=== PATIENT | female | born 1975 | race Caucasian/White ===

== ENCOUNTER 2022-07-20 10:39 | Outpatient (CLI) | payer OTHER, SELFPAY ==
[2022-07-20 22:19] LABS: Chloride* 110 mmol/L (96-114); Sodium* 138 mmol/L (135-149)
[2022-07-20 22:20] LABS: Potassium* 4.2 mmol/L (3.6-5.1)
[2022-07-20 22:22] LABS: Blood Urea Nitrogen* 11 mg/dL (5-24); Carbon Dioxide* 17 mmol/L (20-32); Creatinine* 0.8 mg/dL (0.5-1.5); Estimated Glomerular Filt Rate 91 ml/min; Glucose* 97 mg/dL (60-115)
[2022-07-20 22:23] LABS: Calcium* 8.9 mg/dL (8.4-10.6)
[2022-07-20 23:09] LABS: Free T4 Free Thyroxine* 0.71 ng/dL (0.70-1.85)
[2022-07-23 17:56] LABS: Vitamin D, 1,25-Dihydroxy 80.6 pg/mL (19.9-79.3)
== END 2022-07-20 10:40 | disposition home or self-care (01) ==
PROVIDERS: PCP Physician Assistant Medical; Visit Provider Physician Assistant Medical
DX: E03.9 Hypothyroidism, unspecified (principal); N20.0 Calculus of kidney; F41.9 Anxiety disorder, unspecified; I67.1 Cerebral aneurysm, nonruptured; K52.839 Microscopic colitis, unspecified; M54.50 Low back pain, unspecified; G89.29 Other chronic pain; Z13.21 Encounter for screening for nutritional disorder
CPT/HCPCS: 80048; 82310; 82652; 83970; 84439; 84443

== ENCOUNTER 2022-08-16 16:45 | Outpatient (RCR) | payer OTHER, SELFPAY | END 2022-09-27 15:52 | disposition home or self-care (01) | PROVIDERS: PCP Physician Assistant Medical; Visit Provider Physician Assistant Medical | DX: M54.50 Low back pain, unspecified (principal); Z51.89 Encounter for other specified aftercare | CPT/HCPCS: 97110; 97140; 97162 ==

== ENCOUNTER 2022-10-20 15:58 | Outpatient (CLI) | payer OTHER, SELFPAY | END 2022-10-20 15:59 | disposition home or self-care (01) | LOC: NFLDREF 10-21 10:10 | PROVIDERS: PCP Physician Assistant Medical; Referring Provider Physician Assistant Medical; Visit Provider Physician Assistant Medical | DX: E03.9 Hypothyroidism, unspecified (principal) | CPT/HCPCS: 84443 ==

== ENCOUNTER 2023-01-23 15:42 | Outpatient (CLI) | payer OTHER, SELFPAY | END 2023-01-23 15:43 | disposition home or self-care (01) | PROVIDERS: PCP Physician Assistant Medical; Visit Provider Physician Assistant Medical | DX: M25.472 Effusion, left ankle (principal); E03.9 Hypothyroidism, unspecified | CPT/HCPCS: 84550; 86200; 86431 ==

== ENCOUNTER 2023-03-27 14:40 | Outpatient (CLI) | payer OTHER, SELFPAY | END 2023-03-27 14:41 | disposition home or self-care (01) | LOC: NFLDREF 04-06 07:58 | PROVIDERS: PCP Physician Assistant Medical; Referring Provider Physician Assistant Medical; Visit Provider Physician Assistant Medical | DX: R19.7 Diarrhea, unspecified (principal) | CPT/HCPCS: 87493 ==

== ENCOUNTER 2023-05-10 14:19 | Outpatient (CLI) | payer OTHER, SELFPAY | END 2023-05-10 14:20 | disposition home or self-care (01) | PROVIDERS: PCP Physician Assistant Medical; Visit Provider Family Medicine | DX: R10.9 Unspecified abdominal pain (principal); K21.9 Gastro-esophageal reflux disease without esophagitis | CPT/HCPCS: 80076; 83690; 84443 ==

== ENCOUNTER 2023-05-11 12:51 | Outpatient (CLI) | payer OTHER, SELFPAY | END 2023-05-11 12:52 | disposition home or self-care (01) | LOC: NFLDREF 05-14 12:01 | PROVIDERS: PCP Physician Assistant Medical; Referring Provider Physician Assistant Medical; Visit Provider Family Medicine | DX: K21.9 Gastro-esophageal reflux disease without esophagitis (principal); R10.9 Unspecified abdominal pain | CPT/HCPCS: 87338 ==

== ENCOUNTER 2024-02-28 13:55 | Outpatient (CLI) | payer OTHER, SELFPAY | END 2024-02-28 13:56 | disposition home or self-care (01) | LOC: NFLDREF 03-02 03:03 | PROVIDERS: PCP Physician Assistant Medical; Referring Provider Physician Assistant Medical; Visit Provider Family Medicine | DX: R19.7 Diarrhea, unspecified (principal) | CPT/HCPCS: 87329 ==

== ENCOUNTER 2024-08-13 13:27 | Outpatient (CLI) | payer OTHER, SELFPAY | END 2024-08-13 13:28 | disposition home or self-care (01) | PROVIDERS: PCP Physician Assistant Medical; Visit Provider Physician Assistant Medical | DX: E03.9 Hypothyroidism, unspecified (principal); Z13.228 Encounter for screening for other metabolic disorders; Z13.220 Encounter for screening for lipoid disorders | CPT/HCPCS: 80053; 80061; 84439; 84443 ==

== ENCOUNTER 2024-11-14 11:06 | Outpatient (CLI) | payer OTHER, SELFPAY | END 2024-11-14 11:07 | disposition home or self-care (01) | LOC: NFLDREF 11-20 18:34 | PROVIDERS: PCP Physician Assistant Medical; Referring Provider Physician Assistant Medical; Visit Provider Physician Assistant Medical | DX: E03.9 Hypothyroidism, unspecified (principal) | CPT/HCPCS: 84439; 84443 ==

== ENCOUNTER 2024-11-27 15:50 | Outpatient (CLI) | payer OTHER, SELFPAY | END 2024-11-27 15:51 | disposition home or self-care (01) | LOC: NFLDREF 12-04 22:14 | PROVIDERS: PCP Physician Assistant Medical; Referring Provider Physician Assistant Medical; Visit Provider Physician Assistant Medical | DX: M79.18 Myalgia, other site (principal); R53.83 Other fatigue; R51.9 Headache, unspecified; Z13.21 Encounter for screening for nutritional disorder | CPT/HCPCS: 82306; 82607; 82728; 86618 ==

== ENCOUNTER 2025-02-27 09:45 | Outpatient (CLI) | payer OTHER, SELFPAY | END 2025-02-27 09:46 | disposition home or self-care (01) | LOC: NFLDREF 03-04 08:59 | PROVIDERS: PCP Physician Assistant Medical; Referring Provider Physician Assistant Medical; Visit Provider Physician Assistant Medical | DX: E03.9 Hypothyroidism, unspecified (principal); E55.9 Vitamin D deficiency, unspecified | CPT/HCPCS: 82306; 84443 ==